=== PATIENT | male | born 1985 | race Two or more races ===

== ENCOUNTER 2019-10-04 05:12 | Day surgery (SDC) | payer OTHER ==
[2019-10-04] MEDS ORDERED: PERCOCET 5-3251 EACH PO (08:43)
[2019-10-04] MEDS ORDERED: COLACE100 MG PO (08:43)
== END 2019-10-04 12:20 | disposition home or self-care (01) ==
LOC: CIR.AMB 05:12
DX: K60.3 Anal fistula (principal)